=== PATIENT | female | born 1985 | race Caucasian/White ===

== ENCOUNTER → 2021-04-20 13:52 | Outpatient (BNVA) | payer SELFPAY | PROVIDERS: Visit Provider Orthopaedic Surgery | DX: S69.91XA Unspecified injury of right wrist, hand and finger(s), initial encounter (principal); X58.XXXA Exposure to other specified factors, initial encounter | CPT/HCPCS: 73110 ==

== ENCOUNTER 2021-04-20 15:00 | Outpatient (CLI) | payer SELFPAY | END 2021-04-20 15:01 | disposition home or self-care (01) | LOC: SPT 15:02 | PROVIDERS: Visit Provider Orthopaedic Surgery | DX: Z46.89 Encounter for fitting and adjustment of other specified devices (principal); M65.4 Radial styloid tenosynovitis [de Quervain] | CPT/HCPCS: 97760; L3982 ==

== ENCOUNTER → 2021-05-11 14:00 | Outpatient (BNVA) | payer SELFPAY | PROVIDERS: Visit Provider Orthopaedic Surgery | DX: S69.91XD Unspecified injury of right wrist, hand and finger(s), subsequent encounter (principal); X58.XXXD Exposure to other specified factors, subsequent encounter | CPT/HCPCS: 73110 ==